=== PATIENT | female | born 1945 | race Hispanic/Latino ===

== ENCOUNTER 2017-09-24 19:23 | Inpatient (IN) | payer OTHER, MEDICARE ==
[~2017-09-24] VITALS: Ht 129.5 cm; Wt 38.1 kg
[~2017-09-24 19:23] MED LIST: ACEPHEN650 M1 PR; ATROVENT 0.02%2.5 ML INH; BISACODYL10 M1 RC; COREG25 M1 PO; DIGOXIN0.125 MG PO; DUONEB 3 MG/3 ML3 ML INH/SOL; ELIQUIS5 M1 PO; ELIQUIS5 MG PO; FERROUS SULFAT325 M3 PO; FLEET ENEMA133 ML RC; GLIPIZIDE5 MG PO; GLUCAGON EMERGEN1 MG IM; LANOXIN-DIGO0.125 MG PO; LANTUS100 U/ML SC; LASIX20 MG PO; LASIX40 M1 PO; LASIX40 MG PO; LEVEMIR 10100 UNITS/ SC; LEVEMIR100 U/ML SC; LEVOTHYROXINE100 MC1 PO; LIPITOR40 M1 PO; LISINOPRIL40 M1 PO; MILK OF MA400 MG/52 PO; NOVOLOG100 U/ML SC; OMEPRAZOLE20 M2 PO; PAIN & FEVER325 M1 PO; PRILOSEC 20MG C20 MG PO; PRINIVIL 5MG5 MG PO; PRINIVIL10 MG PO; PRO-STAT 101 3030 M1 PO; RESOURCE 2.0 2237 ML PO; RISPERDAL0.25 MG PO; RISPERIDONE0.25 MG PO; RISPERIDONE0.5 MG PO; TRAZODONE50 MG PO; XARELTO20 MG PO
--- NOTE | 2017-09-24 20:47 | RADIOLOGY REPORT ---
EXAMINATION: CHEST 1 VIEW CLINICAL INFORMATION: Altered mental status. COMPARISON: 12/22/2015. TECHNIQUE: An AP view of the chest is provided. FINDINGS: The cardiac silhouette is enlarged, though stable. Pacer leads are in unchanged position. There is stable interstitial prominence present throughout both lungs. There are neither pleural effusions nor pneumothoraces. The osseous structures are stable. IMPRESSION: Stable cardiomegaly. No consolidations. Stable interstitial prominence present throughout both lungs likely indicative of mild vascular congestion.
[2017-09-24 21:15] LABS: ABSOLUTE BASOPHIL COUNT 0 /CUMM (0.0-0.2); ABSOLUTE EOSINOPHIL COUNT 0 /CUMM (0.0-0.7); ABSOLUTE GRANULOCYTE CT 5.2 /CUMM (1.4-6.5); ABSOLUTE LYMPH COUNT 1.5 /CUMM (1.2-3.4); ABSOLUTE MONOCYTE COUNT 0.5 /CUMM (0.10-0.60); BASOPHIL % 0.5 % (0.0-2.0); EOSINOPHIL % 0.6 % (0-5); GRANULOCYTE % 71.9 % (42.2-75.2); MEAN CORPUSCULAR HGB 29.5 PG (27.0-31.0); MEAN CORPUSCULAR HGB CONC 33.2 G/DL (33.0-37.0); MEAN CORPUSCULAR VOLUME 88.7 FL (81.0-99.0); PLATELET COUNT 241 /CUMM (130-400); RBC DISTRIBUTION WIDTH 14.8 % (11.5-14.5); RED BLOOD CELL CT 4.06 /CUMM (4.20-5.40); WHITE BLOOD CELL COUNT 7.3 /CUMM (4.8-10.8)
[2017-09-24 21:22] LABS: PT 20.1 SEC (9.4-12.5)
--- NOTE | 2017-09-24 21:52 | ED AMS/SEIZURE/WEAK/DIZZY ---
History of Present Illness General Chief Complaint: General Adult Stated Complaint: BIBA WEAKNESS Source: patient, family, old records, EMS, [facility] Exam Limitations: clinical condition Vital Signs & Intake/Output Vital Signs & Intake/Output Vital Signs Date Time Temp Pulse Resp B/P B/P Pulse O2 O2 Flow FiO2 Mean Ox Delivery Rate 09/25 2211 99.9 61 18 191/81 96 Room Air 09/25 1931 97 Nasal 1.0L Cannula 09/24 1929 20 171/79 09/25 1923 99.7 64 20 185/86 93 Room Air ED Intake and Output 09/25 0000 09/24 1200 Intake Total 0 Output Total 0 Balance 0 Intake, Oral 0 Output, Urine 0 Allergies Coded Allergies: No Known Allergies (12/22/15) Reconcile Medications Acetaminophen (Acephen) 650 MG SUPP.RECT 1 SUPP MO Q4H PRN PAIN/TEMP>100 ( Reported) Acetaminophen (Pain & Fever) 325 MG TABLET 2 TAB PO Q4H PRN PAIN/TEMP>100 ( Reported) Apixaban (Eliquis) 5 MG TABLET 1 TAB PO BID BLOOD THINNER (Reported) Atorvastatin Calcium (Lipitor) 40 MG TABLET 1 TAB PO QHS CHOLESTEROL ( Reported) Bisacodyl 10 MG SUPP.RECT 1 SUP RC AD PRN CONSTIPATION (Reported) Carvedilol (Coreg) 25 MG TABLET 1 TAB PO BID HEART/BP (Reported) Ferrous Sulfate 325 MG (65 MG IRON) TABLET 1 TAB PO QAM SUPPLEMENT (Reported) Furosemide (Lasix) 40 MG TABLET 1 TAB PO Q12H DIURETIC (Reported) Glucagon,Human Recombinant (Glucagen) 1 MG VIAL 1 MG IM AD PRN HYPOGLYCEMIA ( Reported) Levothyroxine Sodium 100 MCG TABLET 1 TAB PO DAILY THYROID (Reported) Lisinopril 40 MG TABLET 1 TAB PO DAILY BP (Reported) Magnesium Hydroxide (Milk Of Magnesia) 400 MG/5 ML ORAL.SUSP 30 ML PO DAILY PRN CONSTIPATION (Reported) Melatonin 3 MG TABLET 1 TAB PO QHS PRN INSOMNIA (Reported) Metformin HCl (Glucophage) 1,000 MG TABLET 1 TAB PO BID DM (Reported) Na Phos,M-B/Na Phos,Di-Ba (Fleet Enema) 19 GRAM-7 GRAM/118 ML ENEMA 1 E RC DAILY PRN CONSTIPATION (Reported) Nitrofurantoin (Macrodantin) 50 MG CAPSULE 1 CAP PO QHS ABX (Reported) Omeprazole 20 MG CAPSULE.DR 1 CAP PO DAILY GI (Reported) Polyvinyl Alcohol (Artificial Tears) 1.4 % DROPS 2 DROP OU DAILY BOTH EYES ( Reported) Potassium Chloride 20 MEQ TAB.ER.PRT 1 TAB PO DAILY SUPPLEMENT (Reported) Risperidone (Risperdal) 0.25 MG TABLET 1 TAB PO BID UNKNOWN (Reported) Triage Note: 72 Y.O. FEMALE BIBA FROM [facility] WITH LETHARGY. HX MR. PATIENT NORMALLY IS ACTIVE, ALERT, AND ABLE TO AMBULATE. HX SEPSIS 4 MONTHS AGO. HX AFIB, HTN, ENCEPHALOPATHY, & PACEMAKER. PATIENT MOANED/GROANED WHEN MOVED ONTO STRETCHER. NO RESPIRATORY DISTRESS NOTED. AROUSABLE WHEN VITAL SIGNS CHECKED. Triage Nurses Notes Reviewed? yes Onset: Last week Duration: day(s):, constant, continues in ED Timing: recent history Severity: severe Modifying Factors: Worsens With: movement. LMP (ages 10-50): post menopausal : No Patient currently breastfeeds: No HPI: 5 days prior to admission family notes patient is had decreasing responsiveness and interaction that is usually a sign of infection. Prior to admission she continued to have poor responsiveness referred for evaluation. The family not there's a contusion to the forehead was not present earlier in the day. There's been no reported fever chills nausea vomiting diarrhea abdominal pain chest pain shortness breath headache dysuria rash bleeding. Past History Travel History Traveled to [place] past 21 day No Medical History Any Pertinent Medical History? see below for history Neurological: Alzheimer's disease, MENTAL RETARDATION EENT: NONE Cardiovascular: AFIB, hypertension Respiratory: ASPIRATION PNEUMONIA Gastrointestinal: NONE Hepatic: NONE Renal: NONE Musculoskeletal: NONE Psychiatric: bipolar disease Endocrine: diabetes, hypothyroidism Blood Disorders: NONE Cancer(s): NONE PRODUCTION HAND/Reproductive: NONE History of MRSA: No History of VRE: No History of CDIFF: No Surgical History Surgical History: non-contributory Psychosocial History Who do you live with Sister What is your primary language Danish Tobacco Use: Never used Family History Family History, If Any: FATHER FH: cancer FH: diabetes mellitus FH: heart disease Hx Contributory? No Review of Systems Review of Systems Constitutional: Reports: see HPI, malaise, weakness. EENTM: Reports: no symptoms. Respiratory: Reports: no symptoms. Cardiovascular: Reports: no symptoms. GI: Reports: no symptoms. Genitourinary: Reports: no symptoms. Musculoskeletal: Reports: no symptoms. Skin: Reports: no symptoms. Neurological/Psychological: Reports: see HPI, cognitive dysfunction, weakness. Hematologic/Endocrine: Reports: no symptoms. Immunologic/Allergic: Reports: no symptoms. All Other Systems: Reviewed and Negative Physical Exam Physical Exam General Appearance: lethargic, mild distress Head: frontal contusion Eyes: Bilateral: normal appearance, PERRL, EOMI. Ears, Nose, Throat: normal pharynx, normal ENT inspection Neck: normal inspection, supple, no midline tenderness Respiratory: normal breath sounds, chest non-tender, no respiratory distress, quiet respiration, lungs clear Cardiovascular: normal peripheral pulses, irregularly irregular, norml femoral pulses equa Peripheral Pulses: 4+ carotid (R), 4+ carotid (L) Gastrointestinal: normal bowel sounds, soft, non-tender, no organomegaly Back: normal inspection Extremities: normal range of motion Neurologic/Psych: depressed affect, disoriented x 3, motor weakness Reflexes: 2+: bicep (R), bicep (L). Skin: intact, normal color Lymphatic: no anterior cervical rsus Core Measures ACS in differential dx? No CVA/TIA Diagnosis No Sepsis Present: No Sepsis Focused Exam Completed? No Progress Differential Diagnosis: CVA/stroke, drug intoxication, electrolyte imbalance, hypoxia, pneumonia Plan of Care: Orders Procedure Date/time Status Regular Diet 09/26 B Active URINE DRUGS OF ABUSE 09/25 0310 Active OXYGEN SETUP (GEN) 09/25 202 Active Saline Lock 09/25 020 Active Admit to inpatient 09/25 0203 Active Vital Signs 09/25 020 Active Activity/Ambulation 09/25 020 Active Code Status 09/25 0203 Active Patient Data 09/25 0109 Active RAPID VIRAL INFLUENZA A 09/25 0056 Active FingerStick- Glucose 09/25 0029 Active Add-on Test (ER Only) 09/24 2229 Active BLOOD CULTURE 09/24 2229 Active CULTURE,URINE 09/24 2100 Active Straight Cath 09/24 1949 Active BLOOD CULTURE 09/24 1949 Active URINALYSIS 09/24 1949 Complete TSH REFLEX 09/24 1949 Complete TROPONIN LEVEL 09/24 1949 Complete PROTHROMBIN TIME 09/24 1949 Complete MAGNESIUM 09/24 1949 Complete LACTIC ACID 09/24 1949 Complete COMPREHENSIVE METABOLIC PANEL 09/24 1949 Complete CBC WITHOUT DIFFERENTIAL 04/05 1950 Complete EKG 09/24 1949 Active Intake & Output 09/24 193 Active Laboratory Tests 09/24/17 2250: Lactic Acid Cancelled 09/24/172108: Anion Gap 15, Estimated GFR > 60, BUN/Creatinine Ratio 26.7 H, Glucose 244 H, Lactic Acid 1.6, Calcium 9.2, Magnesium 1.8, Total Bilirubin 1.2, AST 40 H, ALT 64 H, Alkaline Phosphatase 211 H, Troponin I < 0.01, Total Protein 8.1, Albumin 4.0, Globulin 4.1, Albumin/Globulin Ratio 1.0 L, TSH &T3 &Free T4 Intrp 1.610, PT 20.1 H, INR 1.83 H, CBC w Diff NO MAN DIFF REQ, RBC 4.06 L, MCV 88.7, MCH 29.5, MCHC 33.2, RDW 14.8 H, MPV 9.0, Gran % 71.9, Lymphocytes % 20.7 , Monocytes % 6.3, Eosinophils % 0.6, Basophils % 0.5, Absolute Granulocytes 5.2 , Absolute Lymphocytes 1.5, Absolute Monocytes 0.5, Absolute Eosinophils 0, Absolute Basophils 0 09/24/172100: Urine Color YEL, Urine Clarity CLEAR, Urine pH 6.0, Ur Specific Thida 1.020, Urine Protein NEG, Urine Ketones 15 H, Urine Nitrite NEG, Urine Bilirubin NEG, Urine Urobilinogen 0.2, Ur Leukocyte Esterase NEG, Ur Microscopic EXAM NOT REQUIRED, Urine Hemoglobin NEG, Urine Glucose 100 H Microbiology 09/25 0056 NASOPHARYN: Influenza Virus A & B Rapid Smear - ORD 09/24 2229 BLOOD: Blood Culture - ORD 09/24 2100 URINE ROUT: Urine Culture - RECD 09/24 2100 BLOOD: Blood Culture - RECD Diagnostic Imaging: Viewed by Me: Radiology Read, CT Scan. Discussed w/RAD: Radiology Read, CT Scan. Radiology Impression: Right greater than left bilateral pleural effusions. No evidence for acute abdominal or pelvic inflammatory or infectious processes., No CT evidence of acute intracranial process. CXR Impression: Stable cardiomegaly. No consolidations. Stable interstitial prominence present throughout both lungs likely indicative of mild vascular congestion. Initial ED EKG: AFIB, no ST T wave changes Prior EKG: unchanged Rhythm Strip: atrial fibrillation Departure Departure Disposition: STILL A PATIENT Condition: Stable Clinical Impression Primary Impression: Altered mental status Secondary Impressions: Atrial fibrillation, Pleural effusion Referrals: Raquel KHOURY,Larry Waddell (PCP/Family) Departure Forms: Customer Survey General Discharge Information Admission Note Spoke With: Inocente Kohli MD Documentation of Exam: Documentation of any treatments & extenuating circumstances including Concerns Regarding Discharge (functional status, medication knowledge or non-compliance, living conditions, etc.) that warrant an admission rather than observation: Follow culture medication adjustment frequent neurologic checks empiric antibiotic physical therapy continuing care discharge planning
--- NOTE | 2017-09-24 22:15 | CT SCAN REPORT ---
EXAMINATION: CT HEAD WITHOUT CONTRAST CLINICAL INFORMATION: Contusion. COMPARISON: None TECHNIQUE: Contiguous axial imaging was performed from the skull base to vertex without intravenous administration of contrast. FINDINGS: There is no evidence of acute intracranial hemorrhage or territorial infarction. No abnormal mass effect or midline shift is seen. Gil to white matter differentiation is well preserved. No extra-axial fluid collections are identified. The ventricles are normal in size. Periventricular and deep white matter hypodensities, nonspecific, most compatible with chronic microangiopathy changes. No acute calvarial abnormality.. The mastoid air cells and visualized portions of the paranasal sinuses are well aerated. IMPRESSION: No CT evidence of acute intracranial process.
[2017-09-24] MEDS ORDERED: POTASSIUM CHLO20 ME2 PO (22:55)
[2017-09-24] MEDS ORDERED: ARTIFICIAL TEAR15 M8 OU (22:56)
[2017-09-24] MEDS ORDERED: GLUCOPHAGE1000 M1 PO (22:57)
[2017-09-24] MEDS ORDERED: RISPERDAL0.25 M1 PO (22:58)
[2017-09-24] MEDS ORDERED: MACRODANTIN50 M1 PO (23:00)
[2017-09-24] MEDS ORDERED: GLUCAGEN1 MG IM (23:01)
[2017-09-24] MEDS ORDERED: MELATONIN3 M4 PO (23:10)
--- NOTE | 2017-09-25 00:43 | CT SCAN REPORT ---
EXAMINATION: CT ABDOMEN AND PELVIS WITH CONTRAST CLINICAL INFORMATION: Altered mental status. Intra-abdominal infection. COMPARISON: None. TECHNIQUE: Contiguous axial thin section helical images of the abdomen and pelvis were performed following the administration of 95 mL of intravenous Optiray 320. The data set was reformatted in the coronal and sagittal planes and reviewed on an independent workstation. DLP: 226 mGy-cm. FINDINGS: There are bilateral pleural effusions, [id number] on the right and small on the left. The visualized portions of the heart are stable. The liver is of normal size and attenuation without focal lesions nor intrahepatic biliary ductal dilation. A normal gallbladder is identified. There is no wall thickening or discernible pericholecystic fluid. The spleen, pancreas, adrenal glands are unremarkable. Both kidneys are of normal size and attenuation without hydronephrosis or nephrolithiasis. Following the administration of IV contrast, prompt symmetric nephrograms are displayed. There is no abdominal free fluid. There is neither mesenteric nor retroperitoneal lymphadenopathy. Normal unopacified loops of small and large bowel are identified. There is no pelvic free fluid. The urinary bladder is unremarkable. There is neither pelvic nor inguinal lymphadenopathy. Bone windows: Neither sclerotic nor lytic bone lesions are identified. IMPRESSION: Right greater than left bilateral pleural effusions. No evidence for acute abdominal or pelvic inflammatory or infectious processes.
--- NOTE | 2017-09-25 01:12 | History & Physical ---
General Information and HPI Allergies/Medications Allergies: Coded Allergies: No Known Allergies (12/22/15) Home Med list Acetaminophen (Acephen) 650 MG SUPP.RECT 1 SUPP [place] Q4H PRN PAIN/TEMP>100 ( Reported) Acetaminophen (Pain & Fever) 325 MG TABLET 2 TAB PO Q4H PRN PAIN/TEMP>100 ( Reported) Apixaban (Eliquis) 5 MG TABLET 1 TAB PO BID BLOOD THINNER (Reported) Atorvastatin Calcium (Lipitor) 40 MG TABLET 1 TAB PO QHS CHOLESTEROL ( Reported) Bisacodyl 10 MG SUPP.RECT 1 SUP RC AD PRN CONSTIPATION (Reported) Carvedilol (Coreg) 25 MG TABLET 1 TAB PO BID HEART/BP (Reported) Ferrous Sulfate 325 MG (65 MG IRON) TABLET 1 TAB PO QAM SUPPLEMENT (Reported) Furosemide (Lasix) 40 MG TABLET 1 TAB PO Q12H DIURETIC (Reported) Glucagon,Human Recombinant (Glucagen) 1 MG VIAL 1 MG IM AD PRN HYPOGLYCEMIA ( Reported) Levothyroxine Sodium 100 MCG TABLET 1 TAB PO DAILY THYROID (Reported) Lisinopril 40 MG TABLET 1 TAB PO DAILY BP (Reported) Magnesium Hydroxide (Milk Of Magnesia) 400 MG/5 ML ORAL.SUSP 30 ML PO DAILY PRN CONSTIPATION (Reported) Melatonin 3 MG TABLET 1 TAB PO QHS PRN INSOMNIA (Reported) Metformin HCl (Glucophage) 1,000 MG TABLET 1 TAB PO BID DM (Reported) Na Phos,M-B/Na Phos,Di-Ba (Fleet Enema) 19 GRAM-7 GRAM/118 ML ENEMA 1 E RC DAILY PRN CONSTIPATION (Reported) Nitrofurantoin (Macrodantin) 50 MG CAPSULE 1 CAP PO QHS ABX (Reported) Omeprazole 20 MG CAPSULE.DR 1 CAP PO DAILY GI (Reported) Polyvinyl Alcohol (Artificial Tears) 1.4 % DROPS 2 DROP OU DAILY BOTH EYES ( Reported) Potassium Chloride 20 MEQ TAB.ER.PRT 1 TAB PO DAILY SUPPLEMENT (Reported) Risperidone (Risperdal) 0.25 MG TABLET 1 TAB PO BID UNKNOWN (Reported) Past History Travel History Traveled to [place] past 21 day No Medical History Neurological: Alzheimer's disease, MENTAL RETARDATION EENT: NONE Cardiovascular: AFIB, hypertension Respiratory: ASPIRATION PNEUMONIA Gastrointestinal: NONE Hepatic: NONE Renal: NONE Musculoskeletal: NONE Psychiatric: bipolar disease Endocrine: diabetes, hypothyroidism Blood Disorders: NONE Cancer(s): NONE 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 Ambulation: walker IADLs Needs Assist: shopping, housework, finances, food prep, telephone, transportation, medication admin.
--- NOTE | 2017-09-25 01:57 | History & Physical ---
Adriano Shah MD 09/25/17 0156: General Information and HPI MD Statement: I have seen and personally examined BOB MANN and documented this H&P. The patient is a 72 year old F who presented with a patient stated chief complaint of altered mental status. Source of Information: family, old records Exam Limitations: clinical condition History of Present Illness: 72 year old female with past medical history significant for CAD, ischemic cardiomyopathy, HFrEF LVEF 30-35% (2015), PPM for bradycardia (2017), mental retardation, atrial fibrillation on Eliquis, DM, HTN, HLD, hypothyroidism, and previous aspiration pneumonia was brought in for evaluation for altered mental status. The patient's sister and KRISTINA Dawkins ([phone]) provided the history. Apparently, the patient's mental status has been progressively deteriorating for the past five days. She started declining Thursday night, "not speaking right", less communicative, purposeless movements (walking into the wall), and patient's sister noticed rhinorrhea and sneezing without cough, fevers, or chills. The patient never complains of pain and review of systems is unobtainable. Her sister became concerned because at baseline the patient recognizing family members but yesterday could not. She was recently being treated with nitrofurantoin for a urinary tract infection at [place] and was brought in by ambulance for further evaluation. She underwent a CT scan, was given a dose of ceftriaxone, and admitted to telemetry for further management. Allergies/Medications Allergies: Coded Allergies: No Known Allergies (12/22/15) Compliance With Home Meds: GOOD Past History Travel History Traveled to [place] past 21 day No Medical History Neurological: Alzheimer's disease, MENTAL RETARDATION EENT: NONE Cardiovascular: AFIB, hypertension Respiratory: ASPIRATION PNEUMONIA Gastrointestinal: NONE Hepatic: NONE Renal: NONE Musculoskeletal: NONE Psychiatric: bipolar disease Endocrine: diabetes, hypothyroidism Blood Disorders: NONE Cancer(s): NONE MOTION PICTURE EQUIPMENT SUPERVISOR/Reproductive: NONE History of MRSA: No History of VRE: No History of CDIFF: No Surgical History Surgical History: non-contributory Past Family/Social History Family History Relations & Conditions if any FATHER FH: cancer FH: diabetes mellitus FH: heart disease Psychosocial History Primary Language: Martiniquais Functional Ability ADLs Needs Assist: dressing, eating, toileting, bathing. Ambulation: walker IADLs Needs Assist: shopping, housework, finances, food prep, telephone, transportation, medication admin. Review of Systems Review of Systems Constitutional: Reports: no symptoms (unobtainable). Exam & Diagnostic Data Last 24 Hrs of Vital Signs/I&O Vital Signs Date Time Temp Pulse Resp B/P B/P Pulse O2 O2 Flow FiO2 Mean Ox Delivery Rate 09/25 2211 99.9 61 18 191/81 96 Room Air 09/25 1931 97 Nasal 1.0L Cannula 09/24 193 20 171/79 09/25 1923 99.7 64 20 185/86 93 Room Air Intake & Output 09/25 0800 09/25 0000 09/24 1600 Intake Total 0 Output Total 0 Balance 0 Intake, Oral 0 Output, Urine 0 Physical Exam General Appearance No Acute Distress, lethargic but arousable, unable to participate in exam, doesn't follow commands Neck Supple, +JVD Cardiovascular Normal S1, Normal S2, No Murmurs, pacer LCW Lungs diffuse crackles Abdomen Normal Bowel Sounds, Soft, No Tenderness, No Masses Neurological moving all extremities spontaneously Extremities 2+ bilateral LE pitting edema to knees Last 24 Hrs of Labs/[place]: Laboratory Tests 09/24/172249: Lactic Acid Cancelled 09/24/172108: Anion Gap 15, Estimated GFR > 60, BUN/Creatinine Ratio 26.7 H, Glucose 244 H, Lactic Acid 1.6, Calcium 9.2, Magnesium 1.8, Total Bilirubin 1.2, AST 40 H, ALT 64 H, Alkaline Phosphatase 211 H, Troponin I < 0.01, Total Protein 8.1, Albumin 4.0, Globulin 4.1, Albumin/Globulin Ratio 1.0 L, TSH &T3 &Free T4 Intrp 1.610, PT 20.1 H, INR 1.83 H, CBC w Diff NO MAN DIFF REQ, RBC 4.06 L, MCV 88.7, MCH 29.5, MCHC 33.2, RDW 14.8 H, MPV 9.0, Gran % 71.9, Lymphocytes % 20.7 , Monocytes % 6.3, Eosinophils % 0.6, Basophils % 0.5, Absolute Granulocytes 5.2 , Absolute Lymphocytes 1.5, Absolute Monocytes 0.5, Absolute Eosinophils 0, Absolute Basophils 0 09/24/172100: Methadone Screen Pending, Barbiturate Screen Pending, Ur Phencyclidine Scrn Pending, Amphetamines Screen Pending, U Benzodiazepines Scrn Pending, Urine Cocaine Screen Pending, Urine Cannabis Screen Pending, Urine Color YEL, Urine Clarity CLEAR, Urine pH 6.0, Ur Specific [place] 1.020, Urine Protein NEG, Urine Ketones 15 H, Urine Nitrite NEG, Urine Bilirubin NEG, Urine Urobilinogen 0.2, Ur Leukocyte Esterase NEG, Ur Microscopic EXAM NOT REQUIRED, Urine Hemoglobin NEG, Urine Glucose 100 H Microbiology 09/25 0056 NASOPHARYN: Influenza Virus A & B Rapid Smear - ORD 09/24 2229 BLOOD: Blood Culture - ORD 09/24 2100 URINE ROUT: Urine Culture - RECD 09/24 2100 BLOOD: Blood Culture - RECD Diagnostic Data EKG Results atrial fibrillation paced HR 50 CXR Results The cardiac silhouette is enlarged, though stable. Pacer leads are in unchanged position. There is stable interstitial prominence present throughout both lungs. There are neither pleural effusions nor pneumothoraces. The osseous structures are stable. Other Results CT abdomen pelvis with IV contrast Right greater than left bilateral pleural effusions. No evidence for acute abdominal or pelvic inflammatory or infectious processes. Echo 2014 Moderate reduction in overall left ventricular systolic function. Moderate to severe Pulmonary hypertension.Mild left atrial enlargement. Assessment/Plan Assessment: 72 year old female with past medical history significant for CAD, ischemic cardiomyopathy, HFrEF LVEF 30-35% (2015), PPM for bradycardia (2017), mental retardation, atrial fibrillation on Eliquis, DM, HTN, HLD, hypothyroidism, and previous aspiration pneumonia was brought in for evaluation for altered mental status. Altered mental status: NCHCT negative for ischemia or hemorrhage Neurological exam nonfocal Avoid PRODUCTION LINE depressants Tmax 99.9, urinalysis not suggestive of infection although recently treated with macrobid Received ceftriaxone 1g IV x 1 dose Follow up urine and blood cultures Check rapid flu test, consider empiric treatment with tamiflu given reported symptoms CT abdomen pelvis with IV contrast no signs of infection of inflammation Elevated liver function, transaminitis without cholestasis, repeat LFTs in the morning Check RUQ U/S for cholecystitis, althought Car's sign negative No infliltrate on chest x-ray on interstitial prominence suggestive of CHF NPO pending swallow evaluation, meds only Check arterial blood gas Pulmonary embolism unlikely on anticoagulation Aspiration precautions, keep HOB elevated Urine toxicology negative Continue regular accuchecks, athough hyperglycemic on random blood work CAD and HFrEF: Continue aspirin, statin, beta ekaterina, ACEi Change oral lasix to IV lasix 40mg now given hypervolemia Reassess volume status and continue either oral or IV diuresis tomorrow Add proBNP to labs Check a transthoracic echocardiogram Cardiology consultation Check serial troponins and EKGs to evaluate for myocardial ischemia Right greater than left pleural effusions visible of CT abdomen consistent with acute exacerbation of congestive heart failure No supplemental oxygen requirement currently, no tachypnea or increased work of breathing Check arterial blood gas to evaluate for hypercarbia as cause of altered mental status Atrial fibrillation: Continue carvedilol and eliquis HTN: Continue ACEi, loop diuretics, and beta ekaterina HLD: Continue statin therapy DM: Hold oral hypoglycemics Accuchecks TIDAC/HS Novolin NPO scale coverage No IVFs given hypervolemia Chronic anemia: Continue iron supplementation Hypothyroidism: Continue synthroid, TSH wnl NPO pending swallow evaluation DVT ppx-on eliquis Full code As Ranked By This Provider Problem List: 1. Altered mental status 2. UTI (urinary tract infection) 3. CHF (congestive heart failure) 4. Atrial fibrillation 5. Hypothyroidism 6. Bipolar disorder 7. HLD (hyperlipidemia) 8. HTN (hypertension) Core Measures/Misc (03/08) Acute Coronary Syndrome ACS Diagnosis: No Congestive Heart Failure Congestive Heart Failure Diagnosis No Cerebrovascular Accident CVA/TIA Diagnosis: No VTE (View Protocol) VTE Risk Factors Age>40 No Mechanical VTE Prophylaxis d/t N/A MechProphylax Ordered No VTE Pharm Prophylaxis d/t NA PharmProphylax ordered Sepsis (View protocol) Sepsis Present: No Kendall [facility]HOURY[facility] 09[facility] 0453: Resident Review Statement Resident Statement: examined this patient, discussed with consumer insights intern, agreed with consumer insights intern, discussed with family, reviewed EMR data (avail) Other Findings: The patient is obtunded and mentally retarded since , so most of the history was obtained from the POA her sister Mariza. 72 year old female with PMH of CAD, cardiomyopathy, HFrEF LVEF 30-35% (2014), atrial fibrillation and bradycardia status post pacemaker last year, mental retardation since , [id number] DM, HTN, HLD, hypothyroidism, and previous aspiration pneumonia and sepsis who was brought in for evaluation because of AMS. At baseline the patient can recognize family and ambulate independently. Starting last Thursday she became less communicative and is started to have difficulty ambulating where she need to lean on dawn to avoid falling. Her sister noticed earlier today some sneezing and rhinorrhea. Starting this morning she started to look lethargic, confused compared to baseline, and was not able to recognize her family for which she was brought to the ED. Vitals and physical exam on admission: Febrile up to 99.7, hypertensive 185/80, heart rate 64, saturating lower 90s on room air.Physical Exam: lethargic but arousable, unable to participate in exam, doesn't follow commands. Neck positive JVD. CVS paced rhythm, Nl S1/S2 without MRGs. Resp diffuse scattered crackles without wheezing. Abdomen soft and nondistended. Neurology moving all extremity, does not follow command so full neurology exam cannot be obtained. + 2 bilateral Lower extremity edema without cyanosis or clubbing. Labs and imaging on admission: H&H 11.9 and 36, no leukocytosis, sodium, potassium, calcium, and magnesium are WNL. Normal kidney function, negative lactic acid, mild transaminitis with elevated ALP up to 211. Negative troponin. Normal TSH. Negative flu test. Glucose 244. ABG 7.5///. Assessment This patient with multiple comorbidities who presented because of altered mental status and lethargic. She has mild fever, however no leukocytosis, normal UA, no sign of infection on chest x-ray and with negative flu test. She has normal TSH and mildly hyperglycemic. Negative U tox. She has a history of heart failure, positive JVD and lower extremity edema on physical exam, and pleural effusion on CT. ABG showed respiratory alkalosis and mild hypoxia, which most likely secondary to tachypnea given the hypoxia. Problem list * Altered mental status * CAD and HFrEF * Atrial fibrillation * HTN * HLD * DM * Chronic anemia: * Hypothyroidism: Plan * Admit to telemetry floor * Echocardiogram was done recently as an outpatient, obtain records. * 40 mg IV Lasix, repeat tomorrow. * Cardio consult * Avoid PRODUCTION LINE depressants * Panculture * RUQ U/S to r/o cholecystitis, * NPO pending swallow evaluation, meds only * For DM hold oral antihyperglycemic, insulin SS, and accuchecks. * Continue aspirin, statin, beta ekaterina, and ACEi * Continue iron supplementation * Continue synthroid, TSH wnl * Continue carvedilol and eliquis -NPO until swallow eval -DVT ppx-on eliquis -Full code Inocente Kohli 09/25/17 0619: General Information and HPI Allergies/Medications Home Med list Acetaminophen (Acephen) 650 MG SUPP.RECT 1 SUPP MI Q4H PRN PAIN/TEMP>100 ( Reported) Acetaminophen (Pain & Fever) 325 MG TABLET 2 TAB PO Q4H PRN PAIN/TEMP>100 ( Reported) Apixaban (Eliquis) 5 MG TABLET 1 TAB PO BID BLOOD THINNER (Reported) Atorvastatin Calcium (Lipitor) 40 MG TABLET 1 TAB PO QHS CHOLESTEROL ( Reported) Bisacodyl 10 MG SUPP.RECT 1 SUP RC AD PRN CONSTIPATION (Reported) Carvedilol (Coreg) 25 MG TABLET 1 TAB PO BID HEART/BP (Reported) Ferrous Sulfate 325 MG (65 MG IRON) TABLET 1 TAB PO QAM SUPPLEMENT (Reported) Furosemide (Lasix) 40 MG TABLET 1 TAB PO Q12H DIURETIC (Reported) Glucagon,Human Recombinant (Glucagen) 1 MG VIAL 1 MG IM AD PRN HYPOGLYCEMIA ( Reported) Insulin Aspart (Novolog) 100 UNIT/ML VIAL DM (Reported) SLIDING SCALE: BG 251-300 GIVE 2 UNITS BG 301-350 GIVE 2 UNITS BG 351- 400 GIVE 3 UNITS BG GREATER THAN 400 FIVE 4 UNITS Insulin Aspart (Novolog) 100 UNIT/ML VIAL DM (Reported) BEFORE MEALS AT 0730, 1130, 1630 SLIDING SCALE: BG 100-120 GIVE 2 UNITS BG 121-150 GIVE 2 UNITS BG 151-200 GIVE 2 UNITS BG 201-250 GIVE 3 UNITS BG 251-300 GIVE 4 UNITS BG 301-350 GIVE 5 UNITS BG 351-400 GIVE 6 UNITS BG GREATER THAN 600- GIVE 6 UNITS Levothyroxine Sodium 100 MCG TABLET 1 TAB PO DAILY THYROID (Reported) Lisinopril 40 MG TABLET 1 TAB PO DAILY BP (Reported) Magnesium Hydroxide (Milk Of Magnesia) 400 MG/5 ML ORAL.SUSP 30 ML PO DAILY PRN CONSTIPATION (Reported) Melatonin 3 MG TABLET 1 TAB PO QHS PRN INSOMNIA (Reported) Metformin HCl (Glucophage) 1,000 MG TABLET 1 TAB PO BID DM (Reported) Na Phos,M-B/Na Phos,Di-Ba (Fleet Enema) 19 GRAM-7 GRAM/118 ML ENEMA 1 E RC DAILY PRN CONSTIPATION (Reported) Nitrofurantoin (Macrodantin) 50 MG CAPSULE 1 CAP PO QHS ABX (Reported) Nut.tx.gluc.intoler,Lac-Fr,Soy (Glucerna) 237 ML LIQUID 120 ML PO DAILY NUTRITION (Reported) TAKES AT 9PM Omeprazole 20 MG CAPSULE.DR 1 CAP PO DAILY GI (Reported) Polyvinyl Alcohol (Artificial Tears) 1.4 % DROPS 2 DROP OU DAILY DRY EYES ( Reported) Potassium Chloride 20 MEQ TAB.ER.PRT 1 TAB PO DAILY SUPPLEMENT (Reported) Risperidone (Risperdal) 0.25 MG TABLET 1 TAB PO BID UNKNOWN (Reported) Attending MD Review Statement Attending Statement Attending MD Statement: examined this patient, discuss w/resident/PA/TUBE REPAIRER, agreed w/resident/PA/TUBE REPAIRER, reviewed EMR data (avail), reviewed images, amended to note Attending Assessment/Plan: CC: Altered mental status PMH: Mental retardation, A. fib, history of bradycardia S/P pacemaker, DM, HTN, HLD, hypothyroidism, coronary artery disease, HFrEF History is obtained from patient's sister, according to her patient appears more lethargic since last Thursday, not being herself. Usually patient talks a few words, walks independently but since Thursday she appeared more confused, lethargic, not speaking the right, not recognizing her sisters. They also noticed nasal congestion and discharge and sneezing but no cough or expectoration, no fever or chills. Sister denies any history of vomiting, diarrhea. She visits patient daily. According to her patient never complain of pain, and would be difficult to assess anything in her situation. She was treated with nitrofurantoin recently for UTI. ROS limited Vitals: T max 99.9, pulse 64, RR 20, blood pressure 185/86, saturating 93% on room air. On examination: Patient sleeping, lethargic, moans with deep pain, does not follow instructions, squeezes her eyes very tightly and does not let us open, spontaneously moves all extremities, no obvious kidney lesion or inflammation identified, mouth breather, neck supple, JVD elevated, no lymphadenopathy, mucosa dry, +2 leg edema, CVS: S1-S2, RRR. RS: Bilateral crackles up to mid lung zones. Abdomen: Soft, NT, ND, bowel sounds present, Car's sign negative. CXR: Stable cardiomegaly. No consolidations. Stable interstitial prominence present throughout both lungs likely indicative of mild vascular congestion. CT head: No CT evidence of acute intracranial process. CT abdomen and pelvis with IV contrast: Right greater than left bilateral pleural effusions. No evidence for acute abdominal or pelvic inflammatory or infectious processes. Assessment and plan 72-year-old female with extensive past medical history was brought in ER through EMS from [facility] after family members noticed that patient has been more lethargic, confused and last 4 days. Sister also noticed nasal congestion and discharge. Patient has mental retardation at baseline and currently responding to deep pain with moaning only, not following instructions is difficult to assess. She is spontaneously moving all extremities. She woke up 2 times and walked to the bathroom with one person assist. There is no neck stiffness, no focalizing deficits in upper or lower extremities are and facial muscles. Patient has low- grade temperature but no obvious source of infection identified, no leukocytosis , UA is clear. CT abdomen and pelvis unremarkable and chest x-ray does not show any signs of pneumonia. She has mild transaminitis with elevated alkaline phosphatase, would benefit from right upper quadrant ultrasound to rule out any gallbladder and biliary duct pathology. She has significant crackles on auscultation and elevated JVD, she is obviously tachypneic but not hypoxic on pulse ox. Because of her altered mentation ABG was obtained which showed respiratory alkalosis it could be combination for hypoxia with a heart failure and bilateral pleural effusion. Her altered mentation could be because of acute on chronic heart failure, toxic encephalopathy should be ruled out with U tox. + Encephalopathy with underlying mental retardation unclear etiology probably metabolic secondary to acute on chronic heart failure + Acute on chronic heart failure with reduced ejection fraction + Respiratory alkalosis + History of Mental retardation, A. fib, history of bradycardia S/P pacemaker, DM, HTN, HLD, hypothyroidism, coronary artery disease - Admit to telemetry - Continuous telemetry monitoring - Strict I's and O's - Daily weights - Lasix 40 mg IV now and in a.m. - Cardiology consult - U tox - Blood culture, urine culture - Right upper quadrant ultrasound in a.m. - Nothing by mouth until swallow evaluation, try oral medications if patient cooperates or change it to IV - Sliding scale insulin
[2017-09-25] MEDS ORDERED: GLUCERNA237 ML PO (05:36)
[2017-09-25] MEDS ORDERED: ARTIFICIAL TEAR15 M8 OU (05:39)
[2017-09-25] MEDS ORDERED: NOVOLOG100 UNIT/2 SC ×2 (05:56→06:00)
--- NOTE | 2017-09-25 06:22 | Admission Certification ---
Admission Certification Certification Statement - As attending physician, I certify that at the time of - admission, based on clinical presentation, severity of - symptoms, need for further diagnostic testing and - therapeutic interventions, and risk of adverse outcomes - without in-hospital treatment, in my clinical assessment, - this patient requires an acute hospital stay for a minimum - of two nights or longer. I have also considered psychsocial - factors such as support system, advanced age, financial - issues, cognitive issues, and failed out-patient treatments, - past re-admission history, safety of patient, and lack of - compliance as applicable. Specific rationale supporting this admission is: Acute on chronic heart failure with reduced ejection fraction
[2017-09-25 06:26] VITALS: BP 176/80
--- NOTE | 2017-09-25 07:16 | PN- Housestaff ---
[place] 09/25/17 0716: Subjective Follow-up For: Altered mental status UTI Acute on chronic systolic failure Subjective: No overnight events. Patient remained afebrile overnight. Seen and examined this morning. Her sister was on the bedside who gave me information. Patient is mentally retarded. Her sister reported that she is more alert and oriented compared to yesterday and patient was eating when I went to her room to see her. Her sister denied any chest pain, short of breath, nausea, vomiting, abdominal pain and dysuria. Review of Systems Constitutional: Reports: see HPI. Objective Last 24 Hrs of Vital Signs/I&O Vital Signs Date Time Temp Pulse Resp B/P B/P Pulse O2 O2 Flow FiO2 Mean Ox Delivery Rate 09/25 1012 99.1 61 18 166/70 04 1012 99.1 61 18 166/70 04/ 0748 99.1 61 18 166/70 97 Room Air / 0645 94 Room Air / 0626 99.6 62 18 176/80 93 Room Air / 0607 99.6 62 18 176/80 93 Room Air / 0400 99.9 61 18 170/72 97 Room Air 04/ 0343 97 Room Air 04/ 2212 99.9 61 18 191/81 96 Room Air / 1932 97 Nasal 1.0L Cannula 09/24 1930 20 171/79 04/05 1924 99.7 64 20 185/86 93 Room Air Intake & Output / 1600 04/06 0800 04/06 0000 Intake Total 0 Output Total 0 Balance 0 Intake, Oral 0 Output, Urine 0 Patient 89 lb 15.99 oz Weight Weight Reported by Patient Measurement Method Physical Exam General Appearance: Alert, Cooperative Skin Temp/Moisture Exam: Warm/Dry Sepsis Skin Exam (color): Normal for Ethnicity HEENT: Atraumatic Neck: Supple Cardiovascular: Normal S1, Normal S2 Lungs: B/L decreased breath sounds Abdomen: Soft, No Tenderness Neurological: Normal Speech, Normal Tone Extremities: b/l grade 1 pedal edema Assessment/Plan Assessment: 72 year old female with past medical history significant for CAD, ischemic cardiomyopathy, HFrEF LVEF 30-35% (2015), PPM for bradycardia (2017), mental retardation, atrial fibrillation on Eliquis, DM, HTN, HLD, hypothyroidism, and previous aspiration pneumonia was brought in for evaluation for altered mental status. We are following the patient on tele floor for following problems: Metabolic encephalopathy: -Multifactorial considering her mental retardation could be secondary to acute on chronic congestive heart failure and UTI. -We will follow blood cultures -Her flu test is negative -Swallow evaluation -Aspiration precaution Acute on chronic systolic heart failure: -Change oral lasix to IV lasix 40mg now given hypervolemia -Reassess volume status and continue either oral or IV diuresis tomorrow -Add proBNP to labs -Check a transthoracic echocardiogram -Cardiology consultation -Check serial troponins and EKGs to evaluate for myocardial ischemia UTI: -Continue ceftriaxone -She is growing gram-negative rods and urine culture. -We will follow the final culture and sensitivities. History of CAD: -Continue home medications History of Atrial fibrillation: -Continue carvedilol and eliquis History of HTN/HLD: -Continue ACEi, loop diuretics, and beta ekaterina -Continue statin therapy History of DM: -Hold oral hypoglycemics -Accuchecks TIDAC/HS -Novolin NPO scale coverage -No IVFs given hypervolemia History of Chronic anemia: -Continue iron supplementation History of Hypothyroidism: -Continue synthroid, TSH wnl DVT ppx -on eliquis CODE STATUS Full code Problem List: 1. Altered mental status 2. CHF (congestive heart failure) Pain Ratin Pain Location: none Pain Goal: Remain pain free Pain Plan: pain pathway Tomorrow's Labs & Rationales: cbc/bep Frank Chowdhury MD 09/25/17 1355: Attending MD Review Statement Attending Statement Attending MD Statement: examined this patient, discuss w/resident/PA/ENGINEER TECHNICIAN, agreed w/resident/PA/ENGINEER TECHNICIAN, reviewed EMR data (avail) Attending Assessment/Plan: 72F PMH Mental retardation, A. fib, history of bradycardia S/P pacemaker, DM, HTN, HLD, hypothyroidism, coronary artery disease, HFrEF brought in by family for lethargy, decreased PO intake, and confusion, found to be in acute CHF, with mild fever and UTI growing gram negative rods. Sister is at bedside, reports patient is more awake today than yesterday and looks better. Her baseline is awake, recognizing family, and saying a few words. Tmax 99.9, vitals stable, labs reviewed. 1. Acute on chronic systolic CHF 2. Metabolic encephalopathy 3. UTI Plan - Continue on telemetry - Continue IV Lasix - I/O, daily weights - Follow cardiology recommendations - Continue Ceftriaxone - Follow urine culture - Continue home medications - DVT PPx - Continue home medications - DVT PPx
--- NOTE | 2017-09-25 11:52 | ULTRASOUND REPORT ---
EXAMINATION: US ABDOMEN LIMITED CLINICAL INFORMATION: Abnormal liver function. COMPARISON: CT abdomen pelvis 09/24/2017 and abdominal ultrasound 06/28/2014 TECHNIQUE: Real-time imaging of the right upper quadrant abdominal viscera. FINDINGS: PANCREAS: The pancreas is poorly visualized, partially due to its atrophic size. LIVER: Normal. The liver demonstrates normal size, contour and echogenicity. No focal lesion or intrahepatic biliary duct dilatation. GALLBLADDER: The gallbladder is physiologically distended. No gallstones visualized. The gallbladder wall is mildly thickened measuring 5 mm. No significant pericholecystic fluid appreciated. Car sign could not be evaluated as the patient was not alert. COMMON BILE DUCT: Normal in caliber measuring 0.3 cm in diameter. RIGHT KIDNEY: Normal. No hydronephrosis. No renal calculi or focal parenchymal lesions. The kidney measures 8.5 cm in maximum dimension. FREE FLUID: No free fluid identified within the right upper quadrant, however, a right-sided pleural effusion was incidentally noted. IMPRESSION: 1. There is mild diffuse gallbladder wall thickening. Gallbladder wall thickening was appreciated on imaging from June 2014. Gallbladder wall thickening today is less prominent than previously visualized. No significant pericholecystic fluid is appreciated on today's imaging. No gallstones identified. Clinical correlation is recommended. 2. Right-sided pleural effusion.
[2017-09-25 15:57] VITALS: BP 146/88
--- NOTE | 2017-09-25 20:10 | Cons- Cardiology ---
General Information and HPI Consulting Request Date of Consult: 09/25/17 Requested By: Ovi Chowdhury MD History of Present Illness: Tiffany is a 72 year old female with history of hypertension, dyslipidemia, diabetes , ischemic cardiomyopathy, atrial fibrillation and permanent pacemaker for bradycardia. She is known to have a decreased EF of 30-35%. She also has severe mental retardation and cannot speak intelligibly. Her sister had notices that the patient was listing to the right side which she often will do when she is ill such as when she has a UTI. She was also not able to eat and direct her food into her mouth which is not usual for her. Over the past five days the patient has been less communicative and has had rhinnorhea and sneezing. No fever or chills were reported. It should be noted that this patient has recently been treated with nitrofurantoin for a urinary tract infection. Workup did disclose mild pulmonary vascular congestion with small pleural effusions and she does have an increased BNP. Allergies/Medications Allergies: Coded Allergies: No Known Allergies (12/22/15) Home Med List: Acetaminophen (Acephen) 650 MG SUPP.RECT 1 SUPP MS Q4H PRN PAIN/TEMP>100 ( Reported) Acetaminophen (Pain & Fever) 325 MG TABLET 2 TAB PO Q4H PRN PAIN/TEMP>100 ( Reported) Apixaban (Eliquis) 5 MG TABLET 1 TAB PO BID BLOOD THINNER (Reported) Atorvastatin Calcium (Lipitor) 40 MG TABLET 1 TAB PO QHS CHOLESTEROL ( Reported) Bisacodyl 10 MG SUPP.RECT 1 SUP RC AD PRN CONSTIPATION (Reported) Carvedilol (Coreg) 25 MG TABLET 1 TAB PO BID HEART/BP (Reported) Ferrous Sulfate 325 MG (65 MG IRON) TABLET 1 TAB PO QAM SUPPLEMENT (Reported) Furosemide (Lasix) 40 MG TABLET 1 TAB PO Q12H DIURETIC (Reported) Glucagon,Human Recombinant (Glucagen) 1 MG VIAL 1 MG IM AD PRN HYPOGLYCEMIA ( Reported) Insulin Aspart (Novolog) 100 UNIT/ML VIAL DM (Reported) SLIDING SCALE: BG 251-300 GIVE 2 UNITS BG 301-350 GIVE 2 UNITS BG 351- 400 GIVE 3 UNITS BG GREATER THAN 400 FIVE 4 UNITS Insulin Aspart (Novolog) 100 UNIT/ML VIAL DM (Reported) BEFORE MEALS AT 0730, 1130, 1630 SLIDING SCALE: BG 100-120 GIVE 2 UNITS BG 121-150 GIVE 2 UNITS BG 151-200 GIVE 2 UNITS BG 201-250 GIVE 3 UNITS BG 251-300 GIVE 4 UNITS BG 301-350 GIVE 5 UNITS BG 351-400 GIVE 6 UNITS BG GREATER THAN 600- GIVE 6 UNITS Levothyroxine Sodium 100 MCG TABLET 1 TAB PO DAILY THYROID (Reported) Lisinopril 40 MG TABLET 1 TAB PO DAILY BP (Reported) Magnesium Hydroxide (Milk Of Magnesia) 400 MG/5 ML ORAL.SUSP 30 ML PO DAILY PRN CONSTIPATION (Reported) Melatonin 3 MG TABLET 1 TAB PO QHS PRN INSOMNIA (Reported) Metformin HCl (Glucophage) 1,000 MG TABLET 1 TAB PO BID DM (Reported) Na Phos,M-B/Na Phos,Di-Ba (Fleet Enema) 19 GRAM-7 GRAM/118 ML ENEMA 1 E RC DAILY PRN CONSTIPATION (Reported) Nitrofurantoin (Macrodantin) 50 MG CAPSULE 1 CAP PO QHS ABX (Reported) Nut.tx.gluc.intoler,Lac-Fr,Soy (Glucerna) 237 ML LIQUID 120 ML PO DAILY NUTRITION (Reported) TAKES AT 9PM Omeprazole 20 MG CAPSULE.DR 1 CAP PO DAILY GI (Reported) Polyvinyl Alcohol (Artificial Tears) 1.4 % DROPS 2 DROP OU DAILY DRY EYES ( Reported) Potassium Chloride 20 MEQ TAB.ER.PRT 1 TAB PO DAILY SUPPLEMENT (Reported) Risperidone (Risperdal) 0.25 MG TABLET 1 TAB PO BID UNKNOWN (Reported) Review of Systems Review of Systems: A review of systems is unobtainable. 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 [facility] Facility Services at Home: None Primary Language: [place] Smoking Status: Unknown If Ever Smoked Functional Ability ADLs Needs Assist: dressing, eating, toileting, bathing. Ambulation: walker IADLs Needs Assist: shopping, housework, finances, food prep, telephone, transportation, medication admin. Exam & Diagnostic Data Vital Signs and I&O Vital Signs Date Time Temp Pulse Resp B/P B/P Pulse O2 O2 Flow FiO2 Mean Ox Delivery Rate 09/25 1854 97.8 09/25 1656 100.2 09/25 1557 100.2 72 24 146/88 93 09/25 1510 98.6 57 18 126/56 95 Room Air 04 1012 99.1 61 18 166/70 04/ 1012 99.1 61 18 166/70 04/ 0748 99.1 61 18 166/70 97 Room Air / 0645 94 Room Air / 0626 99.6 62 18 176/80 93 Room Air 04/ 0607 99.6 62 18 176/80 93 Room Air 04/ 0400 99.9 61 18 170/72 97 Room Air / 0343 97 Room Air 09/24 2212 99.9 61 18 191/81 96 Room Air Intake & Output 09/25 1600 09/25 0800 09/25 0000 09/24 1600 09/24 0800 09/24 0000 Intake Total 0 Output Total 0 Balance 0 Intake, Oral 0 Output, Urine 0 Patient 89 lb 15.99 oz Weight Weight Reported by Patient Measurement Method Physical Exam: General: WD/WN female in NAD; lethargic HEENT: NC/AT, PERRL, EOMI Neck: no JVD, no carotid bruit Heart: RRR w/o murmur Lungs: decreased air movement bilaterally Abdomen: soft, NT, +ve bowel sounds Extremities: no edema Diagnostic Data EKG Results paced rhythm with underlying atrial fibrillation Assessment/Plan Assessment/Plan * This patient has lethargy that is likely related to her UTI. She does have a fever. I agree with antibiotic therapy. * Hypoxia also needs to be considered in the differential especially considering the patient's low pO2. A PE is less likely due to the patient being on chronic anticoagulation for her atrial fibrillation but considering her sedentary lifestyle is not an impossibility. Obtain a D-dimer. The patient has already received some diuresis but I do think she has at least mild decompensated CHF. This may be due to severe hypertension. She has already received some diuresis but due to her lethargy it is difficult to assess for improvement in symptoms. I would obtain an echocardiogram. Continue to diurese with Lasix 40mg IV daily with monitoring of her BUN, creatinine and potassium. Continue Lisinopril and her beta ekaterina. Consult Acknowledgment - Thank you for your consult request.
[2017-09-25 22:42] VITALS: BP 142/90
--- NOTE | 2017-09-25 22:45 | RADIOLOGY REPORT ---
EXAMINATION: XR PORTABLE CHEST CLINICAL INFORMATION: Altered mental status. Fever. COMPARISON: 09/24/2017 TECHNIQUE: Portable frontal view of the chest was obtained. FINDINGS: Left chest wall dual-lead pacer in place. Cardiac leads overlie the chest. The lungs are well expanded. No significant pleural effusion. No pneumothorax. No dense consolidation. Right hilar prominence. The cardiomediastinal silhouette is unchanged, with a calcified aorta. IMPRESSION: No dense consolidation. Mild right hilar prominence likely associated with vasculature.
[2017-09-26 07:39] VITALS: BP 140/84
--- NOTE | 2017-09-26 08:45 | PN- Housestaff ---
Samira Gutiérrez Maynor De Luna 09/26/17 0845: Subjective Follow-up For: As per problem list in AP Tele-Events Since Last Visit: NSR 70-80s Subjective: No overnight event. Patient was resting comfortably under room air. No specific complaint. Review of Systems Constitutional: Reports: see HPI. Objective Last 24 Hrs of Vital Signs/I&O Vital Signs Date Time Temp Pulse Resp B/P B/P Pulse O2 O2 Flow FiO2 Mean Ox Delivery Rate 09/26 940 67 140/84 09/26 0940 67 140/84 09/26 0800 97 Room Air 09/26 0739 98.6 52 18 140/84 97 Room Air 09/25 2318 99.1 09/25 2242 100.1 56 18 142/90 97 09/25 2142 100.1 09/25 1854 97.8 09/25 1656 100.2 09/25 1557 100.2 72 24 146/88 93 / 1510 98.6 57 18 126/56 95 Room Air Intake & Output 09/26 1600 09/26 0800 09/26 0000 Intake Total 60 400 Output Total 500 Balance 60 -100 Intake, Oral 60 400 Number 0 Bowel Movements Output, Urine 500 Patient 40.88 kg Weight Weight Bed scale Measurement Method Physical Exam General Appearance: No Acute Distress, Sleeping Cardiovascular: Regular Rate, with PVCs Lungs: Clear to Auscultation, Normal Air Movement Current Medications: Current Medications Sig/James Start time Last Medication Dose Route Stop Time Status Admin Acetaminophen 1,000 MG ONCE ONE 09/25 2145 DC 09/25 IV 09/25 2146 2142 Acetaminophen 650 MG ONCE ONE 09/25 1630 DC 09/25 PO 09/25 1631 1656 Apixaban 5 MG BID 09/25 1000 AC 09/26 PO 0940 Atorvastatin Calcium 40 MG AT BEDTIME 09/25 2200 AC PO Carvedilol 25 MG BID 09/25 1000 AC 09/26 PO 0940 Ceftriaxone Sodium 1,000 MG DAILY 09/26 1000 AC 09/26 IV 0941 Ferrous Sulfate 325 MG DAILY 09/25 1000 AC 09/26 PO 0940 Insulin Human Regular 0 TIDAC/HS 09/25 0800 AC 09/26 SC 0836 Levothyroxine Sodium 0.1 MG DAILY AC 09/25 1000 AC 09/26 PO 0611 Lisinopril 40 MG DAILY 09/25 1000 AC 09/26 PO 0941 Omeprazole 20 MG DAILY AC 09/25 0700 AC 09/26 PO 0611 Last 24 Hrs of Lab/[place] Results Last 24 Hrs of Labs/Mics: Laboratory Tests 09/26/17 0630: CBC w Diff NO MAN DIFF REQ, RBC 4.21, MCV 89.4, MCH 29.5, MCHC 33.0, RDW 15.2 H , MPV 8.9, Gran % 61.0, Lymphocytes % 26.2, Monocytes % 11.1 H, Eosinophils % 1.4, Basophils % 0.3, Absolute Granulocytes 5.4, Absolute Lymphocytes 2.3, Absolute Monocytes 1.0 H, Absolute Eosinophils 0.1, Absolute Basophils 0 09/25/17 2305: D-Dimer High Sensitivty 607 H Assessment/Plan Assessment: 72 year old female with past medical history significant for CAD, ischemic cardiomyopathy, HFrEF LVEF 30-35% (2015), PPM for bradycardia (2017), mental retardation, atrial fibrillation on Eliquis, DM, HTN, HLD, hypothyroidism, and previous aspiration pneumonia was brought in for evaluation for altered mental status. We are following the patient on tele floor for following problems: Metabolic encephalopathy: -Multifactorial considering her mental retardation could be secondary to acute on chronic congestive heart failure and UTI. -We will follow blood cultures -Her flu test is negative -Swallow evaluation -Aspiration precaution Acute on chronic systolic heart failure: -Change oral lasix to IV lasix 40mg now given hypervolemia -Reassess volume status and continue either oral or IV diuresis tomorrow -ProBNP 5660 (former 68424). -Pending transthoracic echocardiogram -Cardiology consultation -Check serial troponins and EKGs to evaluate for myocardial ischemia UTI: -Continue ceftriaxone -She is growing gram-negative rods and urine culture. -We will follow the final culture and sensitivities. History of CAD: -Continue home medications History of Atrial fibrillation: -Continue carvedilol and eliquis History of HTN/HLD: -Continue ACEi, loop diuretics, and beta ekaterina -Continue statin therapy History of DM: -Hold oral hypoglycemics -Accuchecks TIDAC/HS -Novolin NPO scale coverage -No IVFs given hypervolemia History of Chronic anemia: -Continue iron supplementation History of Hypothyroidism: -Continue synthroid, TSH wnl DVT ppx -on eliquis CODE STATUS Full code Problem List: 1. Altered mental status Pain Ratin Pain Location: NA Pain Goal: Remain pain free Pain Plan: see AP Tomorrow's Labs & Rationales: LUDWIG Mccullough MD,[facility] [place] 09/26/17 1345: Attending MD Review Statement Attending Statement Attending MD Statement: examined this patient, discuss w/resident/PA/REQUIREMENTS ANALYST, agreed w/resident/PA/REQUIREMENTS ANALYST, reviewed EMR data (avail) Attending Assessment/Plan: Patient awake alert and pleasantArea she appears to be in good mood. Due to underlying mental retardation she's not able to answer any questions. Her temperature this morning was 98.6 and rest of vital signs are stable. Saturation 97% On room air. Chest exam is clear abdomen soft nontender. Patient currently awake and alert but does not follow commands. CBC checked today is within normal limits. Urine culture is growing Escherichia coli which is sensitive to all antibiotics except Bactrim. Assessment and plan Continue IV ceftriaxone Start IV Lasix 40 mg daily Will plan to switch to oral antibiotics tomorrow
[2017-09-26 08:55] LABS: ABSOLUTE BASOPHIL COUNT 0 /CUMM (0.0-0.2); ABSOLUTE EOSINOPHIL COUNT 0.1 /CUMM (0.0-0.7); ABSOLUTE GRANULOCYTE CT 5.4 /CUMM (1.4-6.5); ABSOLUTE LYMPH COUNT 2.3 /CUMM (1.2-3.4); BASOPHIL % 0.3 % (0.0-2.0); EOSINOPHIL % 1.4 % (0-5); HEMATOCRIT 37.7 % (37-47); MEAN CORPUSCULAR HGB 29.5 PG (27.0-31.0); MEAN CORPUSCULAR VOLUME 89.4 FL (81.0-99.0); MEAN PLATELET VOLUME 8.9 FL (7.4-10.4); PLATELET COUNT 248 /CUMM (130-400); RBC DISTRIBUTION WIDTH 15.2 % (11.5-14.5); RED BLOOD CELL CT 4.21 /CUMM (4.20-5.40); WHITE BLOOD CELL COUNT 8.9 /CUMM (4.8-10.8)
[2017-09-26 15:23] VITALS: BP 140/80
[2017-09-26 22:23] VITALS: BP 132/74
--- NOTE | 2017-09-27 06:56 | PN- Housestaff ---
CristianSterling 09/27/17 0655: Subjective Follow-up For: Metabolic encephalopathy UTI Acute on chronic systolic failure Tele-Events Since Last Visit: Atrial flutter with heart rate 60 Subjective: No overnight events. Patient remained afebrile overnight. Seen and examined this morning on bedside. She is mentally retarded not able to onset any question. Also patient is Marshallese-speaking can't understand Pakistani. Review of Systems Constitutional: Reports: see HPI. Objective Last 24 Hrs of Vital Signs/I&O Vital Signs Date Time Temp Pulse Resp B/P B/P Pulse O2 O2 Flow FiO2 Mean Ox Delivery Rate 09/27 0611 98.2 60 18 130/68 97 Room Air 09/26 2245 60 132/74 09/26 2223 97.9 60 18 132/74 98 Room Air 09/26 1523 97.6 60 18 140/80 98 09/26 0941 67 140/84 09/26 0940 67 140/84 09/26 0800 97 Room Air 09/26 0739 98.6 52 18 140/84 97 Room Air Intake & Output 09/27 0800 09/27 0000 09/26 1600 Intake Total 240 320 520 Output Total 800 0 Balance 240 -480 520 Intake, Oral 240 320 520 Number 0 Bowel Movements Output, Urine 800 0 Patient 85 lb 9 oz Weight Weight Bed scale Measurement Method Physical Exam General Appearance: Alert Skin: No Rashes Skin Temp/Moisture Exam: Warm/Dry Sepsis Skin Exam (color): Normal for Ethnicity HEENT: Atraumatic Neck: Supple Cardiovascular: Normal S1, Normal S2 Lungs: Decreased breath sounds b/l Abdomen: Soft, No Tenderness Neurological: Normal Tone Extremities: No Edema Assessment/Plan Assessment: 72 year old female with past medical history significant for CAD, ischemic cardiomyopathy, HFrEF LVEF 30-35% (2015), PPM for bradycardia (2017), mental retardation, atrial fibrillation on Eliquis, DM, HTN, HLD, hypothyroidism, and previous aspiration pneumonia was brought in for evaluation for altered mental status. We are following the patient on tele floor for following problems: Metabolic encephalopathy: -Multifactorial considering her mental retardation could be secondary to acute on chronic congestive heart failure and UTI. -We will follow blood cultures -Her flu test is negative -Swallow evaluation -Aspiration precaution Acute on chronic systolic heart failure: -Change oral lasix 20mg daily. -Reassess volume status and continue either oral or IV diuresis tomorrow -ProBNP 5660 (former 89634). -Pending transthoracic echocardiogram -Cardiology consultation -Check serial troponins and EKGs to evaluate for myocardial ischemia UTI: -keflex 250mg po 4times a day for 5 days -She is growing gram-negative rods and urine culture. -We will follow the final culture and sensitivities. History of CAD: -Continue home medications History of Atrial fibrillation: -Continue carvedilol and eliquis History of HTN/HLD: -Continue ACEi, loop diuretics, and beta ekaterina -Continue statin therapy History of DM: -Hold oral hypoglycemics -Accuchecks TIDAC/HS -Novolin NPO scale coverage -No IVFs given hypervolemia History of Chronic anemia: -Continue iron supplementation History of Hypothyroidism: -Continue synthroid, TSH wnl DVT ppx -on eliquis CODE STATUS Full code Problem List: 1. CHF (congestive heart failure) 2. UTI (urinary tract infection) 3. Altered mental status Pain Ratin Pain Location: none Pain Goal: Remain pain free Pain Plan: pain pathway Tomorrow's Labs & Rationales: none Jamel KHOURY,[facility] 09/27/17 1218: Attending MD Review Statement Attending Statement Attending Assessment/Plan: Attending MD Statement: examined this patient, discuss w/resident/PA/PHOTO CARTOGRAPHER, agreed w/resident/PA/PHOTO CARTOGRAPHER, reviewed EMR data (avail) Attending Assessment/Plan: Patient awake alert and pleasant. Her sisters at the bedside. Patient currently appears to be in good mood. Due to underlying mental retardation she' s not able to answer any questions. Her temperature this morning was 98.2 and rest of vital signs are stable. Saturation 97% On room air. Chest exam is clear abdomen soft nontender. Patient currently awake and alert but does not follow commands. Urine culture is growing Escherichia coli which is sensitive to all antibiotics except Bactrim. Chemistry exam shows potassium 3.3 Assessment and plan Change Lasix to 20 mg by mouth daily Change ceftriaxone to oral Keflex 250 4 times a day for 5 days Patient can be discharged back to [place] today Replace potassium by mouth Check potassium level tomorrow if patient still here
[2017-09-27 07:11] VITALS: BP 130/68
[2017-09-27 09:00] VITALS: BP 132/76
--- NOTE | 2017-09-27 11:16 | Patient Discharge Instructions ---
Discharge Instructions General Discharge Information You were seen/treated for: UTI Metabolic encephalopathic Acute on chronic diastolic heart Watch for these problems: Chest pain, shortness of breath, altered mental status, agitation, blood in urine, possibly discharge in urine and abdominal pain. If you experienced any of these symptoms please come to ED or call your primary care physician. Special Instructions: Follow-up with your primary care physician in one week. Follow-up with freight receiver in 1 week. Discuss about further recommendations for CHF or out patient Echo. Check BEP on 09/28/17. Diet Recommended Diet: Regular Additional DIET Information: Chopped and regular Activity Activity Self Limited: Yes Acute Coronary Syndrome Inclusion Criteria At DC or during hospital stay patient has or had the following: ACS DIAGNOSIS No Discharge Core Measures Meds if any: Prescribed or Continued at Discharge Meds if any: NOT Prescribed or Continued at Discharge Congestive Heart Failure Inclusion Criteria At DC or during hospital stay patient has or had the following: CHF DIAGNOSIS Yes Discharge Core Measures Meds if any: Prescribed or Continued at Discharge Meds if any: NOT Prescribed or Continued at Discharge Comment Patient is on ACEi but echo is Cerebrovascular accident Inclusion Criteria At DC or during hospital stay patient has or had the following: CVA/TIA Diagnosis No Discharge Core Measures Meds if any: Prescribed or Continued at Discharge Meds if any: NOT Prescribed or Continued at Discharge Venous thromboembolism Inclusion Criteria VTE Diagnosis No VTE Type NONE VTE Confirmed by (Test) NONE Discharge Core Measures - Per Current guidelines, there needs to be overlap - treatment for the first 5 days of Warfarin therapy. - If discharged on Warfarin prior to 5 days of - overlap therapy, the patient will need to be - assessed for post discharge needs including - *Post discharge parental anticoagulation - *Warfarin and/or parental anticoagulation education - *Follow up date to check INR post discharge At least 5 days overlap therapy as Inpatient No Meds if any: Prescribed or Continued at Discharge Note: Overlap Therapy is Warfarin and Anticoagulant Meds if any: NOT Prescribed or Continued at Discharge
[2017-09-27] MEDS ORDERED: KEFLEX250 M1 PO (13:10)
[2017-09-27] MEDS ORDERED: MACRODANTIN50 M1 PO (13:30)
--- NOTE | 2017-09-27 14:01 | Discharge Summary ---
See Addendum Visit Information Visit Dates Admission Date: 09/25/17 Discharge Date: 09/27/17 Hospital Course Course Attending Physician: Ovi Chowdhury MD Primary Care Physician: Larry García MD Hospital Course: 72 year old female with past medical history significant for CAD, ischemic cardiomyopathy, HFrEF LVEF 30-35% (2014), PPM for bradycardia (2017), mental retardation, atrial fibrillation on Eliquis, DM, HTN, HLD, hypothyroidism, and previous aspiration pneumonia was brought in for evaluation for altered mental status. ED course: Vitals: Temperature 99.7, pulse 64, respiratory rate 20, blood pressure 185/86, oxygen saturation 93% room air Labs: WBC count 7.3, hemoglobin 11.9, hematocrit 36.0, platelet count 241, sodium 138, potassium 4.8, BUN 24, creatinine 0.9, BUN/creatinine ratio 26.7, glucose 244, lactic acid 1.6, AST 40, ALT 64, troponin less than 0.01, INR 1.83 Metabolic encephalopathy: Probably multifactorial due to UTI in in congestive heart failure. Patient was treated for UTI with IV ceftriaxone and she was treated with IV Lasix for CHF. Later on patient's encephalopathy started to improve. Aspiration precautions were taken. Acute on chronic systolic heart failure: Patient was treated for acute on chronic systolic heart failure with IV Lasix. Cardiology consultation was obtained and recommendations were followed. Daily weights was checked. Her daily input and output was monitored. Her trops and EKGs remained negative for any ischemic cardiac injury. Later on her Lasix was changed to by mouth and her rest of home medications were continued. Patient will follow cardiology as outpatient for further recommendations on consultation echocardiogram. Patient was also instructed to check her BEP on 09/28/17 for her BUN and creatinine. UTI: Initially treated with IV ceftriaxone. Her urine culture came back positive with Escherichia coli. Hold the discharge patient was given Keflex by mouth 4 times a day for 5 more days. After completing Course for 5 more days she will continue her nitrofurantoin every day at bedtime. History of CAD: Continued home medications History of Atrial fibrillation: Continued carvedilol and eliquis History of HTN/HLD: Continued ACEi, loop diuretics, and beta ekaterina Continued statin therapy. History of DM: Accu-Cheks were checked. Patient was given insulin NovoLog according to sliding scale. History of Chronic anemia: Continued iron supplementation History of Hypothyroidism: We continued levothyroxin. DVT prophylaxis: on eliquis CODE STATUS Full code Allergies: Coded Allergies: No Known Allergies (12/22/15) Disposition Summary Disposition Principal Diagnosis: Metabolic encephalopathy UTI Acute on chronic systolic failure Additional Diagnosis: History of CAD History of hypertension and hyperlipidemia History of diabetes History of chronic anemia History of hypothyroidism Discharge Disposition: SNF Discharge Instructions General Discharge Information Code Status: Full Code Patient's Diet: Diabetic diet Patient's Activity: Self-limited Follow-Up Instructions/Appts: Follow-up with your primary care physician in one week. Follow-up with campus president in 1 week. Discuss about further recommendations for CHF or out patient Echo. Check BEP on 09/28/17. Medications at Discharge Discharge Medications: Continue taking these medications: Levothyroxine Sodium (Levothyroxine Sodium) 100 MCG TABLET 1 Tablet ORAL DAILY Atorvastatin Calcium (Lipitor) 40 MG TABLET 1 Tablet ORAL TAKE AT BEDTIME Carvedilol (Coreg) 25 MG TABLET 1 Tablet ORAL TWICE DAILY Lisinopril (Lisinopril) 40 MG TABLET 1 Tablet ORAL DAILY Omeprazole (Omeprazole) 20 MG CAPSULE.DR 1 Capsule ORAL DAILY Apixaban (Eliquis) 5 MG TABLET 1 Tablet ORAL TWICE DAILY Ferrous Sulfate (Ferrous Sulfate) 325 MG (65 MG IRON) TABLET 1 Tablet ORAL Every Morning Acetaminophen (Acephen) 650 MG SUPP.RECT 1 SUPPOSITORY RECTALLY Q4H as needed for PAIN/TEMP>100 Bisacodyl (Bisacodyl) 10 MG SUPP.RECT 1 Suppository RECTAL As Directed as needed for CONSTIPATION Na Phos,M-B/Na Phos,Di-Ba (Fleet Enema) 19 GRAM-7 GRAM/118 ML ENEMA 1 Enema RECTAL DAILY as needed for CONSTIPATION Acetaminophen (Pain & Fever) 325 MG TABLET 2 Tablet ORAL Q4H as needed for PAIN/TEMP>100 Magnesium Hydroxide (Milk Of Magnesia) 400 MG/5 ML ORAL.SUSP 30 Milliliters ORAL DAILY as needed for CONSTIPATION Furosemide (Lasix) 40 MG TABLET 1 Tablet ORAL Q12H Potassium Chloride (Potassium Chloride) 20 MEQ TAB.ER.PRT 1 Tablet ORAL DAILY Metformin HCl (Glucophage) 1,000 MG TABLET 1 Tablet ORAL TWICE DAILY Risperidone (Risperdal) 0.25 MG TABLET 1 Tablet ORAL TWICE DAILY Glucagon,Human Recombinant (Glucagen) 1 MG VIAL 1 Milligram INTRAMUSC As Directed as needed for HYPOGLYCEMIA Melatonin (Melatonin) 3 MG TABLET 1 Tablet ORAL TAKE AT BEDTIME as needed for INSOMNIA Nut.tx.gluc.intoler,Lac-Fr,Soy (Glucerna) 237 ML LIQUID 120 Milliliters ORAL DAILY Instructions: TAKES AT 9PM Polyvinyl Alcohol (Artificial Tears) 1.4 % DROPS 2 DROP Both Eyes DAILY Insulin Aspart (Novolog) 100 UNIT/ML VIAL Inject into fatty tissue BEDTIME Instructions: SLIDING SCALE: BG 251-300 GIVE 2 UNITS BG 301-350 GIVE 2 UNITS BG 351- 400 GIVE 3 UNITS BG GREATER THAN 400 FIVE 4 UNITS Insulin Aspart (Novolog) 100 UNIT/ML VIAL Inject into fatty tissue THREE TIMES DAILY Instructions: BEFORE MEALS AT 0730, 1130, 1630 SLIDING SCALE: BG 100-120 GIVE 2 UNITS BG 121-150 GIVE 2 UNITS BG 151-200 GIVE 2 UNITS BG 201-250 GIVE 3 UNITS BG 251-300 GIVE 4 UNITS BG 301-350 GIVE 5 UNITS BG 351-400 GIVE 6 UNITS BG GREATER THAN 600- GIVE 6 UNITS Start taking the following new medications: Cephalexin (Keflex) 250 MG CAPSULE 1 Capsule ORAL EVERY SIX HOURS Qty = 20 No Refills The following medications have been changed: Old: Nitrofurantoin (Macrodantin) 50 MG CAPSULE 1 Capsule ORAL TAKE AT BEDTIME New: Nitrofurantoin (Macrodantin) 50 MG CAPSULE 1 Capsule ORAL TAKE AT BEDTIME Qty = 15 Instructions: Continue after the keflex. Copies To: Raquel KHOURY,Larry Garcia MD PHD,Ziggy Meraz
[2017-09-27 14:57] VITALS: BP 96/66
[2017-09-27 21:11] VITALS: BP 118/60
[2017-09-27 22:28] VITALS: BP 118/60
[2017-09-28 06:55] VITALS: BP 122/62
--- NOTE | 2017-09-28 07:02 | PN- Housestaff ---
See Addendum Subjective Follow-up For: Metabolic encephalopathy (RESOLVED) Acute on chronic systolic failure UTI Tele-Events Since Last Visit: Patient remained in atrial flutter with heart rate in 60s Subjective: No overnight events. Patient remained afebrile. Seen and examined this morning. She was more alert and cooperative. She is Danish-speaking and having mental retardation. Patient has bowel movement this morning and she can be discharged to [place]. Review of Systems Constitutional: Reports: see HPI. Objective Last 24 Hrs of Vital Signs/I&O Vital Signs Date Time Temp Pulse Resp B/P B/P Pulse O2 O2 Flow FiO2 Mean Ox Delivery Rate 09/28 0706 97.8 68 18 122/62 99 Room Air 09/28 0655 97.8 68 18 122/62 99 09/27 2228 97.8 59 19 118/60 97 Room Air 09/27 2114 60 118/60 09/27 2111 60 118/60 09/27 1457 98.7 58 18 96/66 98 09/27 0902 60 132/76 09/27 0902 60 132/76 09/27 0900 90 132/76 Intake & Output 09/28 1600 09/28 0800 09/28 0000 Intake Total 60 430 Output Total 300 400 Balance -240 30 Intake, IV 10 Intake, Oral 60 420 Number 0 Bowel Movements Output, Urine 300 400 Patient 84 lb Weight Physical Exam General Appearance: Alert, Cooperative Skin Temp/Moisture Exam: Warm/Dry Sepsis Skin Exam (color): Normal for Ethnicity HEENT: Atraumatic Neck: Supple Cardiovascular: Normal S1, Normal S2 Lungs: Clear to Auscultation Abdomen: Soft, No Tenderness Neurological: Strength at 5/5 X4 Ext, Normal Tone Extremities: No Edema Assessment/Plan Assessment: 72 year old female with past medical history significant for CAD, ischemic cardiomyopathy, HFrEF LVEF 30-35% (2015), PPM for bradycardia (2017), mental retardation, atrial fibrillation on Eliquis, DM, HTN, HLD, hypothyroidism, and previous aspiration pneumonia was brought in for evaluation for altered mental status. We are following the patient on tele floor for following problems: Metabolic encephalopathy:(resolved) -Multifactorial considering her mental retardation could be secondary to acute on chronic congestive heart failure and UTI. -Her flu test is negative -Aspiration precaution Acute on chronic systolic heart failure: -Change oral lasix 20mg daily. -Reassess volume status and continue either oral or IV diuresis tomorrow -ProBNP 5660 (former 52921). -Cardiology consultation -Check serial troponins and EKGs to evaluate for myocardial ischemia UTI: -keflex 250mg po 4times a day for 5 days -Urine culture positive with Escherichia coli History of CAD: -Continue home medications History of Atrial fibrillation: -Continue carvedilol and eliquis History of HTN/HLD: -Continue ACEi, loop diuretics, and beta ekaterina -Continue statin therapy History of DM: -Hold oral hypoglycemics -Accuchecks TIDAC/HS -Novolin NPO scale coverage -No IVFs given hypervolemia History of Chronic anemia: -Continue iron supplementation History of Hypothyroidism: -Continue synthroid, TSH wnl DVT ppx -on eliquis CODE STATUS Full code Problem List: 1. UTI (urinary tract infection) 2. Altered mental status Pain Ratin Pain Location: none Pain Goal: Remain pain free Pain Plan: pain pathway Tomorrow's Labs & Rationales: none
[2017-09-28 07:06] VITALS: BP 122/62
[2017-09-28 12:56] VITALS: BP 122/62
--- NOTE | 2017-09-29 08:41 | ECHOCARDIOGRAM REPORT ---
BOB MANN Age: 72 : 1945 Gender: F Exam Date: 09/28/2017 10:28 Exam Location: [address] Ht (in): 51 Wt (lb): 85 BSA: 1.19 BP: 122 / 62 Ordering Physician: Daniela Wright MD Referring Physician: Daniela Wright MD Technologist: Jhonatan Maier [facility] Room Number: 185-1 Indications: CONGENITAL HEART DISEASE Rhythm: paced rhythm Technical Quality: good FINDINGS Left Ventricle Normal left ventricular size, wall thickness and systolic function with anterior, anteroseptal and septal akinesis. The ejection fraction is visually estimated at 30 %. Right Ventricle The right ventricle is normal in size and function. A pacemaker lead is noted in the right cardiac chambers. Right Atrium The right atrium is normal in size. Left Atrium The left atrium is normal in size. The interatrial septum is intact. Mitral Valve The mitral valve is normal in structure and function. There is mild mitral regurgitation. Aortic Valve Mildly thickened and sclerotic normal aortic valve without mild stenosis. There is mild to moderate aortic regurgitation. Tricuspid Valve The tricuspid valve is normal in structure and function. There is mild tricuspid regurgitation. Pulmonary artery systolic pressure is normal. Pulmonic Valve Structurally normal pulmonic valve. There is no pulmonic regurgitation. Pericardium Normal pericardium without effusion. No pleural effusion. Great Vessels Normal aortic root dimension. The aortic arch and great vessels are well seen and are normal. CONCLUSIONS 1. Moderately reduced EF of 30% with anterior, anteroseptal and septal akinesis. 2. Pacemaker lead noted. 3. Mild mitral regurgitation. 4. Mild tricuspid regurgitation. 5. Mild aortic stenosis witn mild to moderate aortic insufficiency. Ziggy Garcia M.D. (Electronically Signed) Final Date: 29 September 2017 08:40 MEASUREMENTS (Male / Female) Normal Values 2D ECHO LV Diastolic Diameter PLAX 4.9 cm 4.2 - 5.9 / 3.9 - 5.3 cm LV Systolic Diameter PLAX 4.1 cm 2.1 - 4.0 cm LV Fractional Shortening PLAX 16.3 % 25 - 46 % LV Ejection Fraction 2D Teich 34.2 % IVS Diastolic Thickness 1.0 cm LVPW Diastolic Thickness 1.0 cm LV Relative Wall Thickness 0.4 RV Internal Dim ED PLAX 3.0 cm 1.9 - 3.8 cm LVOT Diameter 1.7 cm Aortic Root Diameter 2.3 cm LA Systolic Diameter LX 3.6 cm 3.0 - 4.0 / 2.7 - 3.8 cm LV Diastolic Length 4C 5.6 cm 6.9 - 10.3 cm LV Diastolic Area 4C 16.7 cm LV Diastolic Volume MOD 4C 41.0 cm LV Diastolic Volume 4C AL 42.6 cm 85 - 139 / 69 - 109 cm Ascending Aorta Diameter 2.5 cm DOPPLER AV Peak Velocity 120.0 cm/s AV Peak Gradient 5.8 mmHg AV Mean Velocity 76.4 cm/s AV Mean Gradient 3.0 mmHg AV Velocity Time Integral 25.4 cm AI Deceleration Fountain 148.0 cm/s AI Peak Velocity 326.0 cm/s AI Pressure Half Time 643.0 ms AI Peak Gradient 42.5 mmHg LVOT Peak Velocity 74.4 cm/s LVOT Peak Gradient 2.2 mmHg LVOT Mean Velocity 44.6 cm/s LVOT Mean Gradient 1.0 mmHg LVOT Velocity Time Integral 16.1 cm LVOT Stroke Volume 36.5 cm AV Area Cont Eq vti 1.4 cm AV Area Cont Eq pk 1.4 cm MV Peak Velocity 91.0 cm/s MV Peak Gradient 3.3 mmHg MV Mean Velocity 46.8 cm/s MV Mean Gradient 1.0 mmHg Mitral E Point Velocity 81.4 cm/s Mitral A Point Velocity 33.6 cm/s Mitral E to A Ratio 2.4 MV PHT Velocity 92.3 cm/s MV Deceleration Fountain 404.0 cm/s MV Pressure Half Time 68.5 ms MV Area PHT 3.2 cm MV Deceleration Time 239.0 ms TR Peak Velocity 322.0 cm/s TR Peak Gradient 41.5 mmHg Right Atrial Pressure 10.0 mmHg Pulmonary Artery Systolic Pressu 51.5 mmHg Right Ventricular Systolic Press 51.5 mmHg PV Peak Velocity 119.0 cm/s PV Peak Gradient 5.7 mmHg PV Mean Velocity 67.6 cm/s PV Mean Gradient 2.0 mmHg PV Velocity Time Integral 24.8 cm
== END 2017-09-28 13:15 | DRG 70 ==
LOC: ERH 19:23 → ERHI 09-25 02:03 → ENRESERV 09-25 14:12 → ERHI 09-25 14:18 → ENTRNSPT 09-25 15:12 → EDTRNSPTSTS 09-25 15:35 → EDTRNSPT 09-25 15:35 → 1NO 09-25 15:54 → CMPTRNSPT 09-25 16:07 → 1NO 09-25 22:35
PROVIDERS: Emergency Medicine; Student in an Organized Health Care Education/Training Program
DX: G93.41 Metabolic encephalopathy (principal); I50.33 Acute on chronic diastolic (congestive) heart failure; E87.3 Alkalosis; I27.20 Pulmonary hypertension, unspecified; N39.0 Urinary tract infection, site not specified; I48.2 Chronic atrial fibrillation; E11.9 Type 2 diabetes mellitus without complications; B96.20 Unspecified Escherichia coli [E. coli] as the cause of diseases classified elsewhere; I11.0 Hypertensive heart disease with heart failure; G30.9 Alzheimer's disease, unspecified; F02.80 Dementia in other diseases classified elsewhere, unspecified severity, without behavioral disturbance, psychotic disturbance, mood disturbance, and anxiety; I25.5 Ischemic cardiomyopathy; I25.10 Atherosclerotic heart disease of native coronary artery without angina pectoris; R09.02 Hypoxemia; F79 Unspecified intellectual disabilities; Z95.0 Presence of cardiac pacemaker; E03.9 Hypothyroidism, unspecified; F31.9 Bipolar disorder, unspecified; Z79.4 Long term (current) use of insulin; Z79.01 Long term (current) use of anticoagulants; Z79.84 Long term (current) use of oral hypoglycemic drugs
CPT/HCPCS: 1NSP; 36592; 71045; 74177; 80307; 81003; 82436; 87040; 87086; 87804; 87804-59; 93005; 93010; 93306; 96374; J0131; J0696; J1815; J1940